=== PATIENT | female | born 1990 ===

== ENCOUNTER → 2018-05-17 | Outpatient (REF) | payer SELFPAY ==
[2018-05-17 13:24] LABS: HEMATOCRIT 36.3 % (36.0-47.0); HEMOGLOBIN 12.4 g/dl (12.0-15.5); MEAN CORPUSCULAR HEMOGLOBIN 31.7 pg (27.0-33.0); MEAN CORPUSCULAR HGB CONC 34.2 g/dl (32.0-36.5); MEAN CORPUSCULAR VOLUME 92.8 fl (80.0-96.0); PLATELET COUNT, AUTOMATED 242 10^3/uL (150-450); RED BLOOD COUNT 3.91 10^6/uL (4.00-5.40); RED CELL DISTRIBUTION WIDTH 12.8 % (11.5-14.5)
[2018-05-17 14:00] LABS: HCG, SERUM QUANTITATIVE 10338 MIU/ML
[2018-05-18 09:12] LABS: RUBELLA IgG QUALITATIVE IMMUNE (IMMUNE)
[2018-05-18 09:18] LABS: HBsAg Prenatal NEGATIVE (NEGATIVE)
[2018-05-18 09:41] LABS: HEPATITIS C VIRUS ABY INDEX 0.1 INDEX (<0.8)
[2018-05-18 09:42] LABS: HIV 1&2 SCREEN CENTAUR NEGATIVE (NEGATIVE)
== END ==
LOC: M LAB REF 13:04
DX: O36.80X0 Pregnancy with inconclusive fetal viability, not applicable or unspecified (principal); Z3A.00 Weeks of gestation of pregnancy not specified
CPT/HCPCS: 86762